=== PATIENT | male | born 1950 ===

== ENCOUNTER 2022-09-03 08:08 | Observation (INO) ==
[~2022-09-03 08:08] MED LIST: Buffered Lidocaine 1% SYRIN 1 ml INTRADERM ONE; Lactated Ringers 1000 ml BAG 1,000 ML IV SCH; Tranexamic Acid 1,000 MG/10 ML 1,000 MG in NS 0.9% 50 ML 50 ML IV SCH
[2022-09-03] MEDS ORDERED: ceFAZolin 2 GM in NS PREMIX 2 GM/100 ML BAG IVPB ONE (08:50)
[2022-09-03 09:12] LABS: Rapid COVID-19 Molecular Undetected (Undetected)
[2022-09-03] MEDS ORDERED: fentaNYL 100 mcg/2 ml 50 MCG/ML VIAL ONE (09:25)
[2022-09-03] MEDS ORDERED: Midazolam 2 mg/2 ml VIAL 1 mg/ml 2 ml VIAL (2 mg) ONE ×2 (09:26→10:41)
[2022-09-03] MEDS ORDERED: ROPIVACAINE 5 MG/ML 30 ML BTL (0.5%) ONE ×3 (09:26→10:20)
[2022-09-03] MEDS ORDERED: Phenylephrine 40 mcg/mL 10mL (400mcg) SYRINGE ONE (11:26)
[2022-09-03] MEDS ORDERED: HYDROmorphone 1 MG/1 ML SYRINGE IV PRN (11:27)
[2022-09-03] MEDS ORDERED: Naloxone 0.4 mg VIAL 0.4 mg/ml 1 ml VIAL IV PRN (11:27)
[2022-09-03] MEDS ORDERED: Ondansetron 4 mg VIAL 2 MG/ML 2 ml VIAL IV PRN (12:19)
[2022-09-03] MEDS ORDERED: Propofol 10 MG/ML 20 ML BTL ONE ×2 (12:19→12:52)
[2022-09-03] MEDS ORDERED: Lactulose 30 ml UDC PO PRN (12:19)
[2022-09-03] MEDS ORDERED: Ondansetron ODT 4 mg TAB 4 MG TAB PO PRN (12:19)
[2022-09-03] MEDS ORDERED: Magnesium Hydroxide LIQ 30 ML UDC PO PRN (12:19)
[2022-09-03] MEDS ORDERED: Morphine 2 MG/ML SYRINGE IV PRN (12:19)
[2022-09-03] MEDS ORDERED: Lactated Ringers 1000 ml BAG 1,000 ML IV SCH (13:00)
[2022-09-03] MEDS: ceFAZolin 1 GM ADVAN 1 GM in NS 0.9% 50 ML 50 ML IVPB SCH (18:55)
[2022-09-03] MEDS: Magnesium Hydroxide LIQ 30 ML UDC PO SCH (21:19)
[2022-09-04] MEDS: ceFAZolin 1 GM ADVAN 1 GM in NS 0.9% 50 ML 50 ML IVPB SCH ×2 (02:55→08:46)
[2022-09-04 06:54] LABS: Hematocrit 33.7 % (38-53); Hemoglobin 11.8 g/dL (13.2-16.3); Mean Platelet Volume 7.9 fL (7.5-11.2); Platelet Count 174 10^3/uL (150-450)
[2022-09-04 07:16] LABS: Calcium 8.2 mg/dL (8.6-10.3); Creatinine, Serum 0.69 mg/dL (0.67-1.17); eGFR CKD-EPI 98.9 (>60)
[2022-09-04] MEDS: Magnesium Hydroxide LIQ 30 ML UDC PO SCH (08:07)
[2022-09-04] MEDS ORDERED: Vitamin THERAPEUTIC TAB PO SCH (09:00)
== END 2022-09-04 10:25 | disposition home or self-care (01) ==
LOC: INTOOBSV 08:08 → AA 08:08 → SSU 14:48
PROVIDERS: ADMIT Orthopaedic Surgery Adult Reconstructive Orthopaedic Surgery; ATTEND Orthopaedic Surgery Adult Reconstructive Orthopaedic Surgery

== ENCOUNTER 2022-12-03 09:40 | Observation (INO) ==
[~2022-12-03 09:40] MED LIST changes: +Acetaminophen IV 1 GM/100ML 1,000 MG/100 ML BAG IV ONE; +Dexamethasone IV 4 MG/ML VIAL 1 ml VIAL ONE; +Lidocaine 2% PF 5 ML VIAL ONE; +Ondansetron 4 mg VIAL 2 MG/ML 2 ml VIAL ONE; +Phenylephrine IV 10 MG/ML 1 ml VIAL ONE; +Propofol 10 MG/ML 20 ML BTL ONE; -Tranexamic Acid 1,000 MG/10 ML 1,000 MG in NS 0.9% 50 ML 50 ML IV SCH
[2022-12-03] MEDS ORDERED: fentaNYL 100 mcg/2 ml 50 MCG/ML VIAL ONE (09:47)
[2022-12-03] MEDS ORDERED: Midazolam 5 mg/5 ml VIAL 1 mg/ml 5 ml VIAL (5 mg) ONE (09:47)
[2022-12-03] MEDS ORDERED: Midazolam 2 mg/2 ml VIAL 1 mg/ml 2 ml VIAL (2 mg) ONE (09:47)
[2022-12-03] MEDS ORDERED: ceFAZolin 2 GM in NS PREMIX 2 GM/100 ML BAG IVPB ONE (09:54)
[2022-12-03 10:11] LABS: Rapid COVID-19 Molecular Undetected (Undetected)
[2022-12-03] MEDS ORDERED: Ondansetron 4 mg VIAL 2 MG/ML 2 ml VIAL IV PRN ×2 (10:32→16:05)
[2022-12-03] MEDS ORDERED: fentaNYL 100 mcg/2 ml 50 MCG/ML VIAL IV PRN (10:32)
[2022-12-03] MEDS ORDERED: Morphine 4 MG/ML VIAL (1 ml) IV PRN (10:32)
[2022-12-03] MEDS ORDERED: Prochlorperazine 5 mg/ml 2 ml VIAL (10 mg) IV PRN (10:32)
[2022-12-03] MEDS ORDERED: Naloxone 0.4 mg VIAL 0.4 mg/ml 1 ml VIAL IV PRN (10:32)
[2022-12-03] MEDS ORDERED: Bupivacaine 0.25% w/EPI 10 ML SDV ONE (11:00)
[2022-12-03] MEDS ORDERED: Bupivacaine 0.25% SDV PF 10 ML VIAL INJ ONE (11:01)
[2022-12-03] MEDS ORDERED: ROPIVACAINE 5 MG/ML 30 ML BTL (0.5%) ONE (12:44)
[2022-12-03] MEDS ORDERED: Glycopyrrolate IV 0.2 MG/ML 1 ML VIAL ONE (13:24)
[2022-12-03] MEDS ORDERED: Propofol 10 MG/ML 20 ML BTL ONE (13:43)
[2022-12-03] MEDS ORDERED: Scopolamine 1 mg/72hr PATCH ONE (14:54)
[2022-12-03] MEDS ORDERED: Magnesium Hydroxide LIQ 30 ML UDC PO PRN (16:05)
[2022-12-03] MEDS ORDERED: Lactulose 30 ml UDC PO PRN (16:05)
[2022-12-03] MEDS ORDERED: Morphine 2 MG/ML SYRINGE IV PRN (16:05)
[2022-12-03] MEDS ORDERED: Ondansetron ODT 4 mg TAB 4 MG TAB PO PRN (16:05)
[2022-12-03] MEDS ORDERED: Lactated Ringers 1000 ml BAG 1,000 ML IV SCH (17:00)
[2022-12-03] MEDS: Magnesium Hydroxide LIQ 30 ML UDC PO SCH (22:49)
[2022-12-03] MEDS: ceFAZolin 1 GM ADVAN 1 GM in NS 0.9% 50 ML 50 ML IVPB SCH (23:11)
[2022-12-04] MEDS: ceFAZolin 1 GM ADVAN 1 GM in NS 0.9% 50 ML 50 ML IVPB SCH (05:51)
[2022-12-04 06:30] LABS: Hematocrit 33.4 % (38-53); Hemoglobin 11.6 g/dL (13.2-16.3); Mean Platelet Volume 8.4 fL (7.5-11.2); Platelet Count 162 10^3/uL (150-450)
[2022-12-04 06:50] LABS: Calcium 8.2 mg/dL (8.6-10.3); Creatinine, Serum 0.82 mg/dL (0.67-1.17); Potassium 4.1 mmol/L (3.5-5.0); eGFR CKD-EPI 93.9 (>60)
[2022-12-04] MEDS ORDERED: Vitamin THERAPEUTIC TAB PO SCH (09:00)
[2022-12-04] MEDS: Magnesium Hydroxide LIQ 30 ML UDC PO SCH (09:07)
[2022-12-04 09:58] VITALS: BP 107/62
== END 2022-12-04 11:07 | disposition home or self-care (01) ==
LOC: AA 09:40 → INTOOBSV 09:40 → SSU 16:56
PROVIDERS: ADMIT Orthopaedic Surgery Adult Reconstructive Orthopaedic Surgery; ATTEND Orthopaedic Surgery Adult Reconstructive Orthopaedic Surgery